=== PATIENT | female | born 1965 | race Caucasian/White ===

== ENCOUNTER 2017-03-24 08:00 | Outpatient (CLI) | payer BC | END 2017-03-24 08:01 | disposition home or self-care (01) | LOC: BICMAMMO 08:00 | PROVIDERS: ATTEND Obstetrics & Gynecology | DX: Z12.31 Encounter for screening mammogram for malignant neoplasm of breast (principal) | CPT/HCPCS: 77063 ==

== ENCOUNTER 2018-05-04 07:59 | Outpatient (CLI) | payer BC | END 2018-05-04 08:00 | disposition home or self-care (01) | LOC: BICMAMMO 07:59 | PROVIDERS: ATTEND Obstetrics & Gynecology | DX: Z12.31 Encounter for screening mammogram for malignant neoplasm of breast (principal); R92.1 Mammographic calcification found on diagnostic imaging of breast | CPT/HCPCS: 77063; 77067 ==

== ENCOUNTER → 2020-06-14 | Day surgery (SDC) | payer BC ==
--- NOTE | 2020-06-14 09:22 | MMO ---
Stereotactic guided biopsy left breast microcalcifications Surgical specimen mammography Left diagnostic mammogram post biopsy HISTORY: Abnormal mammogram. Microcalcifications left breast. FINDINGS: After explaining the procedure and answering all questions, the microcalcification cluster at the inferior lateral aspect of the left breast was visualized. Sterile technique, buffered local anesthesia, stereotactic guidance, and a lateral approach were used to carefully advance a 10-gauge vacuum-assisted biopsy needle into the microcalcification cluster. A total of 6 core specimens were obtained and eventually submitted pathology for evaluation. Surgical specimen mammography shows the calcifications in the sample specimens. A total of 2 localization clips were placed in the biopsy bed and confirmed with stereotactic imaging . Needle was removed. Hemostasis obtained using direct pressure. Patient tolerated the procedure well and was eventually dismissed in good condition. Postprocedure diagnostic mammogram images show the microcalcifications to have been removed. 2 locali zation clips are present in the biopsy bed. IMPRESSION : Technically successful stereotactic guided biopsy left breast microcalcifications. Pathology is pendi ng.
== END ==
LOC: MAMMO 07:01
PROVIDERS: ATTEND Obstetrics & Gynecology
PROC: 0H9U0ZX Drainage of Left Breast, Open Approach, Diagnostic (ICD-10-PCS; principal; 2020-06-14)
DX: D05.12 Intraductal carcinoma in situ of left breast (principal)
CPT/HCPCS: 19081; 76098; 88305; 88341; 88342

== ENCOUNTER 2020-06-21 14:04 | Outpatient (CLI) | payer BC ==
[2020-06-21 15:52] LABS: #Eosinphils 0.1 10x3/uL (0.0-0.5); #Monocytes 0.6 10x3/uL (0.0-1.1); #Neutrophils 4.6 10x3/uL (1.5-8.4); %Basophils 0.4 % (0.0-2.0); %Eosinophils 1.1 % (0.0-6.0); %Lymphocytes 28.3 % (18.0-47.0); %Monocytes 7.8 % (0.0-10.0); Hemoglobin 13.2 g/dL (12.0-15.5); Mean Corpuscular HGB CONC 31.9 g/dL (32.0-36.0); Mean Corpuscular Hemoglobin 27.8 pg (27.0-33.0); Mean Corpuscular Volume 87.2 fl (81.6-98.3); Mean Platelet Volume 10.9 fl (7.4-10.4); Platelet Count 280 10x3/uL (150-450); RBC Distribution Width 13.2 % (11.5-14.5); Red Blood Cell (RBC) Count 4.75 10x6/uL (3.90-5.03); White Blood Cell (WBC) Count 7.4 10x3/uL (3.5-10.5)
[2020-06-21 16:11] LABS: Anion Gap 13 mmol/L (10-20); BUN (Urea Nitrogen) 17 mg/dL (9.8-20.1); Calc. Creatinine Clearance 0 mL/min (70-130); Calcium 9.7 mg/dL (7.8-10.44); Carbon Dioxide 27 mmol/L (22-29); Chloride 104 mmol/L (98-107); Glucose 97 mg/dL (70-105); Potassium 4.2 mmol/L (3.5-5.1); Sodium 140 mmol/L (136-145)
[2020-06-22 02:35] LABS: SARS-CoV-2 PCR by NAA Not Detected (NotDetected)
== END 2020-06-21 14:05 | disposition home or self-care (01) ==
LOC: LABBT 14:04
PROVIDERS: ATTEND Specialist
DX: Z01.818 Encounter for other preprocedural examination (principal); Z01.812 Encounter for preprocedural laboratory examination; R92.1 Mammographic calcification found on diagnostic imaging of breast; D05.12 Intraductal carcinoma in situ of left breast; Z20.822 Contact with and (suspected) exposure to COVID-19
CPT/HCPCS: 80048; 85025; 87635; 93005; 93010; U0003; U0005

== ENCOUNTER 2020-06-26 08:04 | Day surgery (SDC) | payer BC ==
[2020-06-25 10:30] VITALS: BMI 29.5
[2020-06-26] MEDS ORDERED: ePHEDrine 50 MG/ML VIAL ONE (08:57)
[2020-06-26] MEDS ORDERED: Ondansetron PF 4 MG/2 ML Vial ONE (08:57)
[2020-06-26] MEDS ORDERED: Lidocaine 1% PF 5 ML VIAL ONE (08:57)
[2020-06-26] MEDS ORDERED: PROPOFOL 200 MG/20 ML VIAL ONE (08:57)
[2020-06-26] MEDS ORDERED: Dexamethasone 20 MG/5 ML VIAL ONE (08:57)
[2020-06-26] MEDS ORDERED: Glycopyrrolate 0.2 MG/ML 5 ML SYRINGE ONE (08:57)
[2020-06-26] MEDS ORDERED: Metoclopramide HCl 10 MG/2 ML VIAL ONE (08:57)
[2020-06-26] MEDS ORDERED: PHENYLEPHRINE-NS 100 MCG/ML 10 ML SYRINGE ONE (08:57)
[2020-06-26] MEDS ORDERED: Dexmedetomidine 200 MCG/2 ML VIAL ONE (09:16)
[2020-06-26] MEDS ORDERED: Fentanyl 100 MCG/2 ML VIAL ONE (09:16)
[2020-06-26] MEDS ORDERED: Acetaminophen 500 MG TAB ONE ×2 (10:13→10:16)
[2020-06-26] MEDS ORDERED: Ketorolac Tromethamine 30 MG/ML VIAL ONE (10:13)
[2020-06-26] MEDS ORDERED: Levofloxacin 500 mg/D5W 100 ml Premix Bag ONE (10:13)
[2020-06-26] MEDS ORDERED: Isosulfan Blue 50 MG/5 ML VIAL ONE (11:23)
[2020-06-26] MEDS ORDERED: XYLOCAINE 2%-EPI 1:100,000 20 ML VIAL ONE (11:23)
[2020-06-26] MEDS ORDERED: Lidocaine 2% PF 5 ML VIAL ONE (11:23)
[2020-06-26] MEDS ORDERED: Bupivacaine 0.25% HCL 30 ML VIAL ONE (11:23)
== END 2020-06-26 15:27 | disposition home or self-care (01) ==
LOC: SDC 08:04
PROVIDERS: ATTEND Specialist
PROC: 07B60ZX Excision of Left Axillary Lymphatic, Open Approach, Diagnostic (ICD-10-PCS; principal; 2020-06-26)
PROC: 0HBU0ZZ Excision of Left Breast, Open Approach (ICD-10-PCS; principal; 2020-06-26)
DX: D05.12 Intraductal carcinoma in situ of left breast (principal); N62 Hypertrophy of breast; N60.22 Fibroadenosis of left breast; D24.2 Benign neoplasm of left breast; Z79.899 Other long term (current) drug therapy; Z88.0 Allergy status to penicillin; Z88.8 Allergy status to other drugs, medicaments and biological substances
CPT/HCPCS: 19281; 76098; 78195; 88307; 88341; 88342; A9541; J1100; J1885; J1956; J2001; J2405; J2704; J2765; J3010; J3490; Q9968; S0020

== ENCOUNTER 2021-06-18 08:20 | Outpatient (CLI) | payer BC | END 2021-06-18 08:21 | disposition home or self-care (01) | LOC: BICMAMMO 08:20 | PROVIDERS: ATTEND Specialist | DX: R92.1 Mammographic calcification found on diagnostic imaging of breast (principal) | CPT/HCPCS: 77066; G0279 ==

== ENCOUNTER 2022-06-19 08:33 | Outpatient (CLI) | payer BC | END 2022-06-19 08:34 | disposition home or self-care (01) | LOC: BICMAMMO 08:33 | PROVIDERS: ATTEND Specialist | DX: Z08 Encounter for follow-up examination after completed treatment for malignant neoplasm (principal); Z85.3 Personal history of malignant neoplasm of breast | CPT/HCPCS: 77066; G0279 ==

== ENCOUNTER 2023-07-01 08:05 | Outpatient (CLI) | payer BC | END 2023-07-01 08:06 | disposition home or self-care (01) | LOC: BICMAMMO 08:05 | PROVIDERS: ATTEND Specialist | DX: Z12.31 Encounter for screening mammogram for malignant neoplasm of breast (principal); Z86.000 Personal history of in-situ neoplasm of breast | CPT/HCPCS: 77063; 77067 ==